=== PATIENT | female | born 1960 | race Caucasian/White ===

== ENCOUNTER 2022-11-01 17:17 | Emergency (ER) | payer OTHER, BC ==
--- OUTSIDE RECORDS SUMMARY | 2022-11-01 17:21 | XMS REPORT | Clinical Summary ---
:1960 Author Organization [facility] MD [facility] Address [address] [place] [address] Care Team Providers Name Role Phone Guero Shabazz MD Unavailable Altagracia Chavarria MD Unavailable [phone] Keerthi Mcdowell MD Primary Care Provider Allergies No known active allergies Medications Medication Sig Dispensed Refills Start End Date Status Date CALCIUM 0 Active CARBONATE/VITAMIN 5 D3 (CALCIUM 600 + D,3, ORAL) magnesium 200 mg 800 mg. 0 Act seven tab 5 metFORMIN Take by mouth 2 0 Acti ve (GLUCOPHAGE) 500 (two) times a day 6 mg tablet with meals. cholecalciferol, 0 Act seven vitamin D3, 50 5 mcg (2,000 unit) capsule fish oil-omega-3 Take 2 capsules 0 Active fatty acids (2 g) by mouth 300-1,000 mg daily. capsule MV-MIN/IRON/FOLIC Take by mouth 0 Active /CALCIUM/VITK daily. (WOMEN'S MULTIVITAMIN ORAL) albuterol Inhale 2 puffs by 0 Ac tive (VENTOLIN mouth as needed. HFA,PROAIR HFA) 90 mcg/puff inhaler losartan-hydrochl Take 1 tablet by 0 Active orothiazide mouth daily. (HYZAAR) 50-12.5 mg per tablet Saxenda 3 mg/0.5 0 Act seven mL (18 mg/3 mL) 2 pnij rosuvastatin rosuvastatin 5 mg 0 Active (CRESTOR) 5 mg tablet tablet LORazepam Take 0.5 mg by 0 06/04/19 Disco ntinued (ATIVAN) 0.5 mg mouth once. 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 History of radiation therapy to breast area 11/03/2016 Intraductal carcinoma in situ of left breast 7 Cancer Staging: Clinical stage from 07/14: Stage 0 (Tis (DCIS), N0, M0) - Signed by Hui Plaza MD on 07/14/2016 Pathologic stage from 08/18/2016: Stage U nknown (Tis (DCIS), NX, cM0) - Signed by Hui Plaza MD on 08/18/2016 Encounters Date Type Specialty Care Team Description 06/11/2022 Ancillary Procedure Radiology Jo-Ann Mendez, Person al history of MD malignant neopl asm of breast 06/11/2022 Ancillary Procedure Radiology Jo-Ann Mendez, Person al history of MD malignant neopl asm of breast 06/11/2022 Travel 06/04/2022 Office Visit Cancer Prevention Fredi Moore, Encounter for follow-up examination after completed treatment for malignant neoplasm (Primary Dx); PRESS LEADER Personal history of malignant neoplasm o f breast; Jo-Ann Mendez, Lobular carci noma in situ of unspecified breast 06/04/2022 Ancillary Procedure Radiology Fredi Moore, Personal history of PRESS LEADER malignant neopl asm of breast 06/04/2022 Travel after 11/01/2021 Immunizations Name Administration Dates Next Due Pfizer SARS-CoV-2 Vaccination (Purple 05/21/2021, , 08/08/2020 Cap) Influenza (IM) Preservative Free 03/17/2017 Pfizer SARS-CoV-2 Vaccination 12+ y.o. 10/04/2021 Surgical History Surgery Date Site/Laterality Comments SECTION, LOW 1993, 1996 TRANSVERSE THERMAL ABLATION 06/01/2011 - 05/31/2012 endometri um DILATION AND CURETTAGE OF 06/01/2013 - 05/31/2014 UTERUS TUBAL LIGATION 03/01/1997 - N/A 03/31/1997 COLONOSCOPY 06/01/2019 - 05/31/2020 MASTECTOMY, PARTIAL OTHER SURGICAL HISTORY breast re excision Medical History Medical History Date Comments Hypertension Cyst of breast Menopause 09/30/2011 Uterine leiomyoma 09/30/2011 Insulin resistance - type A Mnire's disease Gestational diabetes mellitus Neoplasm of breast primary tumor staging category 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 Neoplasm of breast primary tumor staging category Tis (LCIS) : Lobar carcinoma in situ Atypical lobular hyperplasia of breast Osteopenia Other specified noninfective gastroenteritis and colitis 2021 Family History Medical History Relation Name Comments Skin cancer Maternal Aunt Lung cancer Maternal Grandmother Francy smoker -Breast cancer Other 1 paternal 2nd cou sin Ovarian cancer Other 2 paternal great a unt Pancreatic cancer Other 3 maternal great grandmother Leukemia Paternal Grandfather Relation Name Status Comments Maternal Aunt Maternal Grandmother Francy Other 1 Other 2 Other 3 Paternal Grandfather Paternal Grandmother Kelin Malave Social History Tobacco Use Types Packs/Day Years Used Date Smoking Tobacco: Never Smokeless Tobacco: Never Tobacco Cessation: Counseling Given: Not Answered Alcohol Use Standard Drinks/Week Comments No 0 (1 standard drink = 0.6 oz pure alcoho l) Sex Assigned at Date Recorded Not on file Job Start Date Occupation Industry Not on file Not on file Not on file Obstetrics History Para Term AB IAB SAB Ectopic Multiple Living Live Births 2 2 Date Outcome GA Total Labor/2nd/3rd Weight Sex Delivery Anes PTL Sherry A 1 A5 Name Clin Labor Para Para Comments Age of menarche: 17, age of parity: 33 Use of oral contraceptives: 15 years, us e of hormone replacement therapy: 3 years Last Filed Vital Signs Vital Sign Reading Time Taken Comments Blood Pressure 110/68 06/04/2022 2:10 PM HOSPITAL MONITOR Pulse 77 06/04/2022 2:10 PM HOSPITAL MONITOR Temperature - - Respiratory Rate 18 06/04/2022 2:10 PM HOSPITAL MONITOR Oxygen Saturation - - Inhaled Oxygen Concentration - - Weight 61.2 kg (134 lb 15.8 oz) 06/04/2022 2:07 PM HOSPITAL MONITOR Height 153 cm (5' 0.24") 06/04/2022 2:07 PM HOSPITAL MONITOR Body Mass Index 26.16 06/04/2022 2:07 PM HOSPITAL MONITOR Plan of Treatment Date Type Specialty Care Team Description 01/14/2023 Office Visit Cancer Prevention Jo-Ann Mendez MD [address] [place], [place] [address] (Wo rk) 01/14/2023 Ancillary Procedure Radiology Travis Mendez MD [address] [place], [place] [address] (Wo rk) Health Maintenance Due Date Last Done Comments COVID-19 Vaccination (5 - Pfizer 11/29/2021 10/04/2021, , series) 08/29/2020, Additional history exists Procedures Procedure Name Priority Date/Time Associated Comments Diagnosis US BREAST COMPLETE Routine 06/11/2022 2:33 PM Personal history of Results for this RIGHT HOSPITAL MONITOR malignant neoplasm procedure are in of breast the results section. MAMMO DIGITAL Routine 06/11/2022 1:41 PM Personal history of R esults for this DIAGNOSTIC RIGHT W HOSPITAL MONITOR malignant neoplasm pro cedure are in ALEX of breast the results section. MAMMO DIGITAL Routine 06/04/2022 1:43 PM Personal history of R esults for this SCREENING BILATERAL HOSPITAL MONITOR malignant neoplasm pr ocedure are in W ALEX of breast the results section. after 11/01/2021 Results US Breast Complete - Right (06/11/2022 2:33 PM HOSPITAL MONITOR) Anatomical Region Laterality Modality Breast Right Ultrasound Specimen (Source) Anatomical Collection Method Collection Time Re ceived Time Location / / Volume Laterality 06/11/2022 2:34 PM HOSPITAL MONITOR Impressions 06/11/2022 2:34 PM HOSPITAL MONITOR There is no sonographic evidence of malignancy. Annual screening mammogram in 1 year is recommended. BI-RADS Category 2: Benign Finding(s) The findings and recommendations were di scussed with the patient at time of the examination. Narrative 06/11/2022 2:34 PM HOSPITAL MONITOR CLINICAL INDICATION: Patient is a 61 year old female and is s een for additional evaluation requested from prior study FILMS COMPARED [facility], and at [facility] on 08/26/2021 and 06/11/2022 were reviewed. Images were obtained in multiple scannin g planes. Real-time sonographic imaging of the rig ht breast (including all 4 quadrants and retroareolar region) was performed. There are post operative changes in the right breast. No suspicious solid mass or acoustic abnormality is identified. Procedure Note Lala Brunson MD - 06/11/2022 CLINICAL INDICATION: Patient is a 61 year old female and is s een for additional evaluation requested from prior study FILMS COMPARED Prior [facility] 06/[facility]2017, and at [facility] on 08/26/2021 and 06/11/2022 were reviewed. Images were obtained in multiple scannin g planes. Real-time sonographic imaging of the rig ht breast (including all 4 quadrants and retroareolar region) was performed. There are post operative changes in the right breast. No suspicious solid mass or acoustic abnormality is identified. IMPRESSION: There is no sonographic evidence of rudy gnancy. Annual screening mammogram in 1 year is recommended. BI-RADS Category 2: Benign Finding(s) The findings and recommendations were di scussed with the patient at time of the examination. Jo-Ann Mendez MD IMG US ORDERABLES (ABNORMAL) Mammography Digital Diagnostic Right with Alex (06/11/2022 1:41 PM HOSPITAL MONITOR) Anatomical Region Laterality Modality Breast Right Mammography Specimen (Source) Anatomical Collection Method Collection Time Re ceived Time Location / / Volume Laterality 06/11/2022 2:32 PM HOSPITAL MONITOR Impressions 06/11/2022 2:32 PM HOSPITAL MONITOR There are no mammographic findings of malignancy. Ultrasound has been ordered for further evaluation and scheduled to immediately follow. BI-RADS Category 0: Incomplete: Needs Additional Imaging Margarita luation Narrative 06/11/2022 2:32 PM HOSPITAL MONITOR CLINICAL INDICATION: Patient is a 61 year old female and is s een for additional evaluation requested from prior study MAMMO DIGITAL DIAGNOSTIC RIGHT W ALEX Digital Mammogram evaluated with Compute r Aided Detection (CAD). COMPARISON: [facility]2017 and 07/09/2018, at [facility] on 08/17/2020, and at [facility] on 08/23/2021 and 06/04/2022 were reviewed. FINDINGS: The breast is heterogeneously dense, whi ch may obscure small masses. The previously described asymmetry in th e superior right breast is not identified on the lateral medial project ion and no underlying suspicious mass or architectural distortion is identifie d on 3D tomosynthesis imaging. There are postoperative changes from prior reducti on mammoplasty. This finding likely represents postoperative change. Tomosynthesis performed in CC and MLO pr ojections. Procedure Note Lala Brunson MD - 06/11/2022 CLINICAL INDICATION: Patient is a 61 year old female and is s een for additional evaluation requested from prior study MAMMO DIGITAL DIAGNOSTIC RIGHT W ALEX Digital Mammogram evaluated with Compute r Aided Detection (CAD). COMPARISON: [facility]2017 and 07/09/2018, at [facility] on 08/17/2020, and at [facility] on 08/23/2021 and 06/04/2022 were reviewed. FINDINGS: The breast is heterogeneously dense, whi ch may obscure small masses. The previously described asymmetry in th e superior right breast is not identified on the lateral medial project ion and no underlying suspicious mass or architectural distortion is identifie d on 3D tomosynthesis imaging. There are postoperative changes from prior reducti on mammoplasty. This finding likely represents postoperative change. Tomosynthesis performed in CC and MLO pr ojections. IMPRESSION: There are no mammographic findings of ma lignancy. Ultrasound has been ordered for further evaluation and scheduled to immediately follow. BI-RADS Category 0: Incomplete: Needs Additional Imaging Margarita luation Jo-Ann Mendez MD IMG MAMMOGRAPHY ORDERABLES (ABNORMAL) Mammography Digital Screening Bilateral with Alex (06/04/2022 1:43 PM HOSPITAL MONITOR) Anatomical Region Laterality Modality Breast Bilateral Mammography Specimen (Source) Anatomical Collection Method Collection Time Re ceived Time Location / / Volume Laterality 06/04/2022 2:00 PM HOSPITAL MONITOR Impressions 06/04/2022 2:00 PM HOSPITAL MONITOR 1: Finding in the posterior upper inner region of the left breast is benign. 2: Asymmetry in the superior right aleksandra ast located 4.5 centimeters from the nipple requires additional imaging evalu ation. Additional views and possible ultrasound to follow are recommended. 3: Calcifications in both breasts are benign. BI-RADS Category 0: Incomplete: Needs Additional Imaging Margarita luation Narrative 06/04/2022 2:00 PM HOSPITAL MONITOR CLINICAL INDICATION: Patient is a 61 year old female and is s een for screening. MAMMO DIGITAL SCREENING BILATERAL W ALEX Digital Mammogram evaluated with Compute r Aided Detection (CAD). COMPARISON: The present examination has been compare d to prior imaging studies performed at an outside location on 06/12/2015, 06/25, 07/08/2016, 08/04/2016, 08/07/2016, 02/19/2017, 06/30/2017 and 0 07/09/2018, at [facility] on 08/17/2020, and a [facility] on 08/23/2021. FINDINGS: The breast is heterogeneously dense, whi ch may obscure small masses. 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 2: There is an asymmetry seen in the M LO view only in the superior right breast located 4.5 centimeters from the nipple. 3: There are benign appearing calcific ations in both breasts. Tomosynthesis performed in CC and MLO pr ojections. Procedure Note Luma Zambrano MD - 06/04/2022 CLINICAL INDICATION: Patient is a 61 year old female and is s een for screening. MAMMO DIGITAL SCREENING BILATERAL W ALEX Digital Mammogram evaluated with Compute r Aided Detection (CAD). COMPARISON: The present examination has been compare d to prior imaging studies performed at an outside location on 06/12/2015, 06/25, 07/08/2016, 08/04/2016, 08/07/2016, 02/19/2017, 06/30/2017 and 0 07/09/2018, at [facility] on 08/17/2020, and a [facility] on 08/23/2021. FINDINGS: The breast is heterogeneously dense, whi ch may obscure small masses. 1: This is from a segmental mastectomy i n 2016 for DCIS. 2: There is an asymmetry seen in the MLO view only in the superior right breast located 4.5 centimeters from the nipple. 3: There are benign appearing calcificat ions in both breasts. Tomosynthesis performed in CC and MLO pr ojections. IMPRESSION: 1: Finding in the posterior upper inner region of the left breast is benign. 2: Asymmetry in the superior right breas t located 4.5 centimeters from the nipple requires additional imaging evalu ation. Additional views and possible ultrasound to follow are recommended. 3: Calcifications in both breasts are be nign. BI-RADS Category 0: Incomplete: Needs Additional Imaging Margarita luation Fredi Moore APRN IMG MAMMOGRAPHY ORDERABLES after 11/01/2021 Insurance Payer Benefit Plan / Subscriber ID Effective Dates Phone Addre ss Type Group [employer] [place] POS [id number] 2019-Present [address] [address] [place] [id number] (Work) Suki Sidhu Personal/Famil Self 1960 [address] [phone] [place], [place] [address] (Work) Suki Sidhu Personal/Famil Self 1960 [address] [phone] [place], [place] [address] (Work) Care Teams Process Environmental Technician Relationship Specialty Start Date End Date Guero Shabazz MD PCP - External Primary Internal Medicine 07/14/16 Care Provider Altagracia Chavarria PCP - External Obstetrics/Gynecology 07/14/16 MD Ese Referring [id number] [facility] [address] [place] [address] Keerthi Mcdowell MD PCP - General Cancer Prevention 08/23/21 [facility] [place], [place] [id number] Dr. Parikh Physician Endocrinology 07/14/[address] [address]
--- OUTSIDE RECORDS SUMMARY | 2022-11-01 17:22 | XMS REPORT | Continuity of Care Document ---
:1960 Author Organization [facility] t Address [address] [facility] [address] [place] [address] Care Team Providers Name Role Phone [phone] Primary Care Physician Unavailable Pura Perez Attending Clinician Valentino Jarvis MD Attending Clinician [email or web address] Attending Clinician Unavailable Mame Justice MD Attending Clinician MAME JUSTICE Attending Clinician Unavailable Fredi Palmer APRN Attending Clinician FREDI PALMER Attending Clinician Unavailable Laurie Agee MD Attending Clinician [phone] Rodriguez Walker MD Attending Clinician Gabrielle Phelan Attending Clinician LAURIE AGEE Attending Clinician Unavailable Gillian Robledo Attending Clinic forest [phone] ROBERTO BA Attending Clinician Unavailable MAURA SHEA Attending Clinician Unavailable HELENA COMBS Attending Clinician Unavailable XOCHITL ARVIZU Attending Clinician Unavailable ZAHIRA CUNNINGHAM Attending Clinician Unavailable WALT GONZALEZ Attending Clinician Unavailable ELMA MONIQUE Attending Clinician Unavailable MD MAURA SHEA Attending Clinician Unavailable MD LAURIE AGEE Attending Clinician Unavailable CARROLLEPC_LeycoPolicarp Admitting Clinician Unavailable LAURIE AGEE Admitting Clinician Unavailable MD MAURA SHEA Admitting Clinician Unavailable MD LAURIE AGEE Admitting Clinician Unavailable Payers Payer Name Policy Type Policy Number Effective Date Expiration Date S ovidio BCBS OF P [id number] [facility] BLUE CROSS-CA: [id number] 2019 00:00:00 ANTHEM BLUE CROSS (PPO) Problems Condition Condition Condition Status Onset Resolution Last Treating Co mments Source Name Details Category Date Date Treatment Clinician Date COVID COVID-19 Disease Active [facility]o di 01-25 [facility] 00:00: Hospita 00 l 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 08-27 Medical cyst Cyst 00:00: 00 Neoplasm Neoplasm Disease Active Unive rs of breast of breast 6-08 ity of primary primary 00:00: [place] tumor tumor 00 staging staging [facility] category category n 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 Impaired Impaired Problem Active [facility] a fasting Fasting 5-26 Medical glycemia Glycemia 00:00: 00 Hyperlipid Hyperlipid Problem Active 2017-06 [facility] emia emia 0-12 Medical 00:00: 00 Osteopenia Osteopenia Problem Active [facility] 4-18 Medical 00:00: 00 Elevated Elevated Problem Active [facility] liver Liver 6-08 Medical enzymes Enzymes 00:00: level Level 00 History of History of Disease Active U nivers radiation radiation 6-05 ity [place] [facility] Malignant Malignant Problem Active [facility] via tumor of Tumor of 3-05 Medica l breast Breast 00:00: 00 Vitamin D Vitamin D Problem Active [facility] via deficiency Deficiency 3-05 Me dical 00:00: 00 Ruptured Ruptured Problem Active [facility] cyst of Cyst of 3-05 Medical ovary Ovary 00:00: 00 History of History of Problem Active [facility] endometria Endometria 3-05 Me dical l ablation l Ablation 00:00: 00 Menopause Menopause Problem Active [facility] via 3-05 Medical 00:00: 00 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 00:[place]: [place] 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 [facility] breast breast [facility] Menopause Menopause Problem Active [facility] via present Present 09-09 Medical 00:00: 00 Hypoglycem Hypoglycem Problem Active [facility] ia ia 02-09 Medical 00:00: 00 Metabolic Metabolic Problem Active [facility] via syndrome X Syndrome X 02-09 Me dical 00:00: 00 Benign Benign Problem Active [facility] essential Essential 02-09 Medi adilia hypertensi Hypertensi 00:00: on on 00 Hypertensi Hypertensi Problem Active [facility] ve ve 02-09 Medical disorder Disorder 00:00: 00 Menopausal Menopausal Problem Active [facility] symptom Symptom 02-09 Medical 00:00: 00 Abnormal Abnormal Problem Active [facility] weight Weight 02-09 Medical gain Gain 00:00: 00 History of History of Problem Active [facility] gestationa Gestationa - Me dical l diabetes l Diabetes 00:00: mellitus Mellitus 00 Family Family Problem Active [facility] history of History of 02-09 Me dical diabetes Diabetes 00:00: mellitus Mellitus 00 Allergies, Adverse Reactions, Alerts This patient has no known allergies or adverse reactions. Family History Family Member Diagnosis Comments Start Date Stop Date Source Maternal aunt [facility] MD [facility] Maternal Lung cancer [facility] MD Son [facility] [place] Other -[facility] MD [facility]ick [facility] [place] Other [facility] Nicanor [facility] Other Pancreatic cancer [facility] Nicanor [facility] Paternal Leukemia [facility] MD Son [facility] [place] Paternal [facility] MD Son [facility] [place] Social History Social Habit Start Date Stop Date Quantity Comments Source Gender identity [facility] Sexual [facility] History of Social 2022-08-05 2022-08-[address] function 00:00:00 00:00:00 Hospital Tobacco use and 2022-06-04 2022-06-04 Smokeless Universit y of exposure 00:00:00 00:00:00 tobacco non-user [facility] Alcohol intake 2022-01-09 2022-01-09 Current Catholic 00:00:00 00:00:00 non-drinker of Hospital alcohol (finding) Sex Ass[birth year] At [birth year] Catholic 00:00:00 00:00:00 Hospital Smoking Status Start Date Stop Date Source Never smoked tobacco [facility] Medications Ordered Filled Start Stop Current Ordering Indication Dosage Frequency Signature Comments Components Source Medication Medication Date Date Medication? Clinician (SIG) Name Name rosuvastati Yes rosuvastat Univers n (CRESTOR) -04 in 5 mg ity o f 5 mg tablet 19:09: [place] 08 [place] Lr [facility] LORazepam .5mg Take 0.5 Uni vers (ATIVAN) 1-04 01-04 mg by ity of 0.5 mg 14:22: 00:00 mouth [place] tablet 59 :00 once. MD Be tang [facility] fish Yes 2g Take 2 Univers oil-omega-3 1-04 capsules ity of fatty acids 14:14: (2 g[place] 300-1,000 05 mouth MD mg capsule daily. [facility] MV-MIN/IRON Yes Take by Uni vers /FOLIC/CALC 1-04 mouth ity of IUM/VITK 14:14: daily. [place] (WOMEN'S 05 MULTIVITAMI Be Tang ORAL) [facility] albuterol Yes 2{puff} Inhale 2 U nivers (VENTOLIN 1-04 puffs by ity of HFA,PROAIR 14:14: mouth as [place] as HFA) 90 05 needed. mcg/puff [facility] inhaler [facility] losartan-hy Yes 1{tbl} Take 1 Un allegra drochloroth 1-04 tablet by ity of iazide 14:14: mouth [place] (HYZAAR) 05 daily. 50-12.5 mg [facility] per tablet [facility] Saxenda 3 2021-06 Yes Univers mg/0.5 mL 1-02 ity of (18 mg/3 00:00: [place] mL) pnij 00 MD Lr n [facility] traZODone Yes 50mg QD Take 50 mg Me thodi (DESYREL) 8-[address] 50 MG 10:10: nightly. Hospita tablet 02 l liraglutide Yes 3mg QD Inject 3 Me thodi , weight 8-[address] loss, 3 10:10: the skin Hospit a mg/0.5 mL 02 daily. l (18 mg/3 mL) pen injector losartan-hy Yes 1{tbl} QD Take 1 Me thodi drochloroth 8-[address] iazide 10:10: mouth Hospita (HYZAAR) 02 daily. l 50-12.5 mg per tablet rosuvastati Yes 5mg QD Take 5 mg M ethodi n (CRESTOR) 8-[address] 5 mg tablet 10:10: daily. Hosp alia 02 l magnesium Yes 500mg QD Chew 500 Met hodi oxide 200 8-[address] mg 10:19: Hospita magnesium 50 l tablet,chew able metFORMIN Yes 1000mg QD Take 1,000 Methodi XR 8-[address] (GLUCOPHAGE 10:19: mouth Hospi ta -XR) 500 mg 50 nightly. l 24 hr tablet multivit-mi Yes Take by Met hodi n/ferrous 8-[address] fumarate 10:19: Hospita (MULTI 50 l VITAMIN ORAL) omega Yes Fish Oil Methodi 3-dha-epa-f 8[address] [facility] oil 10:19: Hospita 100-160-1,0 50 l 00 mg capsule benzocaine- 2019-06- No Q.25D Apply 1 M ethodi menthoL 1-18 01-[address] (DERMOPLAST 00:00: 00:00 n Hospi ta ) 20-0.5 % 00 :00 topically l aerosol 4 (four) times a day as needed for mild pain. benzocaine- 2019-06- No Q.25D Apply 1 M ethodi menthoL 0-[address] (DERMOPLAST 00:00: 00:00 n Hospi ta ) 20-0.5 % 00 :00 topically l aerosol 4 (four) times a day as needed for mild pain. amb custom 2019-06- No Lidocaine M ethodi compound 0-14 08 10% in a st 00:00: 00:00 hypoallerg Hospit a 00 :00 enic l nonburning base Applied to the entry of the vagina 5 to 10 minutes prior to vaginal penetratio n Fish Oil Fish Oil 2015-06 No Fish Oil P [facility]ia 120 mg-180 120 mg-180 1-23 120 mg-180 Medical mg capsule mg capsule 00:00: mg capsule 00 Fish Oil Fish Oil 2015-06 No Fish Oil P [facility] 120 mg-180 120 mg-180 1-23 120 mg-180 Medical mg capsule mg capsule 00:00: mg capsule 00 Fish Oil Fish Oil 2015-06 No Fish Oil P [facility]ia 120 mg-180 120 mg-180 1-23 120 mg-180 Medical mg capsule mg capsule 00:00: mg capsule 00 Fish Oil Fish Oil 2015-06 No Fish Oil P [facility]ia 120 mg-180 120 mg-180 1-23 120 mg-180 Medical mg capsule mg capsule 00:00: mg capsule 00 metFORMIN Yes Take by [facility] rs (GLUCOPHAGE 07-02 mouth 2 ity o f ) 500 mg 00:00: (two) [place] tablet 00 times a MD day with [facility] meals. n [facility] CALCIUM Yes Univers CARBONATE/V 01-30 ity of ITAMIN D3 00:00: [place] (CALCIUM 00 600 + D,3, [facility] ORAL) n Cancer Center magnesium Yes 800mg 800 mg. Univ ers 200 mg tab 01-30 ity of 00:00: [place] 00 MD rL [facility] Center cholecalcif Yes [facility] s leigh, 01-30 ity of vitamin D3, 00:00: [place] 50 mcg 00 (2,000 [facility] unit) n capsule Cancer Center calcium Yes Methodi carbonate-v 01-30 st itamin D3 00:00: Hospita 1,000 00 l mg(2,500 mg)-800 unit tablet lisinopril- 2021- No Metho di hydrochloro 701-07 st thiazide 00:00: 00:00 Hospita (PRINZIDE,Z 00 :00 l ESTORETIC) 10-12.5 mg per tablet Calcium 500 Calcium 500 No Calcium [facility] 12 k daily 12 k daily 500 12 k Medical daily famotidine famotidine No famotidine [facility] 20 mg 20 mg 20 mg Medical tablet tablet tablet losartan 50 losartan 50 No losartan [facility] mg-hydrochl mg-hydrochl 50 M edical orothiazide orothiazide mg-hydroch 12.5 mg 12.5 mg lorothiazi tablet TAKE tablet TAKE de 12.5 mg 1 TABLETBY 1 TABLETBY tablet ORAL ROUTE ORAL ROUTE TAKE 1 DAILY DAILY TABLETBY ORAL ROUTE DAILY magnesium magnesium No magnesium [facility] 800 daily 800 daily 800 daily Medical metformin metformin No metformin [facility] ER 500 mg ER 500 mg ER 500 mg Medical tablet,exte tablet,exte tablet,ext nded nded ended release 24 release 24 release 24 hr TAKE 2 hr TAKE 2 hr TAKE 2 TABLETS BY TABLETS BY TABLETS BY MOUTH DAILY MOUTH DAILY MOUTH DAILY pantoprazol pantoprazol No pantoprazo [facility] e 40 mg e 40 mg le 40 mg Medic al tablet,alvaro tablet,alvaro tablet,del yed release yed release ayed TAKE 1 TAKE 1 release TABLET BY TABLET BY TAKE 1 MOUTH EVERY MOUTH EVERY TABLET BY DAY DAY MOUTH EVERY DAY Saxenda 3 Saxenda 3 No 3mg Q1D Saxenda 3 [facility] mg/0.5 mL mg/0.5 mL mg/0.5 mL Medical (18 mg/3 (18 mg/3 (18 mg/3 mL) mL) mL) subcutaneou subcutaneou subcutaneo s pen s pen us pen injector injector injector Inject 3 mg Inject 3 mg Inject 3 every day every day mg every by by day by subcutaneou subcutaneou subcutaneo s route for s route for us route 90 days. 90 days. for 90 days. trazodone trazodone No trazodone [facility] 50 mg 50 mg 50 mg Medical tablet TAKE tablet TAKE tablet 1 1 TAKE 1 TABLET(50MG TABLET(50MG TABLET(50M )BY ORAL )BY ORAL G)BY ORAL ROUTE AT ROUTE AT ROUTE AT BEDTIME BEDTIME BEDTIME Ventolin Ventolin No Ventolin [place]el[place] via HFA 90 HFA 90 HFA 90 Medical mcg/actuati mcg/actuati mcg/actuat on aerosol on aerosol ion inhaler inhaler aerosol INHALE 2 INHALE 2 inhaler PUFFS FOUR PUFFS FOUR INHALE 2 TIMES A DAY TIMES A DAY PUFFS FOUR NEEDED NEEDED TIMES A AND FOR AND FOR DAY EXERCISE EXERCISE NEEDED AND FOR EXERCISE Vitamin 3 k Vitamin 3 k No Vitamin 3 [facility] daily daily k daily Medical Calcium 500 Calcium 500 No Calcium [facility] 12 k daily 12 k daily 500 12 k Medical daily famotidine famotidine No famotidine [facility] 20 mg 20 mg 20 mg Medical tablet tablet tablet lorazepam lorazepam No lorazepam [facility] 0.5 mg 0.5 mg 0.5 mg Medical tablet TAKE tablet TAKE tablet 1 TABLET 1 TABLET TAKE 1 (0.5 MG) BY (0.5 MG) BY TABLET MOUTH ONCE MOUTH ONCE (0.5 MG) FOR 1 DOSE. FOR 1 DOSE. BY MOUTH ONCE FOR 1 DOSE. losartan 50 losartan 50 No losartan [facility] mg-hydrochl mg-hydrochl 50 M edical orothiazide orothiazide mg-hydroch 12.5 mg 12.5 mg lorothiazi tablet TAKE tablet TAKE de 12.5 mg 1 TABLETBY 1 TABLETBY tablet ORAL ROUTE ORAL ROUTE TAKE 1 DAILY DAILY TABLETBY ORAL ROUTE DAILY magnesium magnesium No magnesium [facility] 800 daily 800 daily 800 daily Medical metformin metformin No metformin [facility] ER 500 mg ER 500 mg ER 500 mg Medical tablet,exte tablet,exte tablet,ext nded nded ended release 24 release 24 release 24 hr TAKE 2 hr TAKE 2 hr TAKE 2 TABLETS BY TABLETS BY TABLETS BY MOUTH DAILY MOUTH DAILY MOUTH DAILY pantoprazol pantoprazol No pantoprazo [facility] e 40 mg e 40 mg le 40 mg Medic al tablet,alvaro tablet,alvaro tablet,del yed release yed release ayed TAKE 1 TAKE 1 release TABLET BY TABLET BY TAKE 1 MOUTH EVERY MOUTH EVERY TABLET BY DAY DAY MOUTH EVERY DAY rosuvastati rosuvastati No rosuvastat [facility] n 5 mg n 5 mg in 5 mg Medical tablet TAKE tablet TAKE tablet 1 TABLET BY 1 TABLET BY TAKE 1 MOUTH MOUTH TABLET BY EVERYDAY AT EVERYDAY AT MOUTH BEDTIME BEDTIME EVERYDAY AT BEDTIME Saxenda 3 Saxenda 3 No 3mg Q1D Saxenda 3 [facility] mg/0.5 mL mg/0.5 mL mg/0.5 mL Medical (18 mg/3 (18 mg/3 (18 mg/3 mL) mL) mL) subcutaneou subcutaneou subcutaneo s pen s pen us pen injector injector injector Inject 3 mg Inject 3 mg Inject 3 every day every day mg every by by day by subcutaneou subcutaneou subcutaneo s route for s route for us route 90 days. 90 days. for 90 days. trazodone trazodone No trazodone [facility] 50 mg 50 mg 50 mg Medical tablet TAKE tablet TAKE tablet 1 1 TAKE 1 TABLET(50MG TABLET(50MG TABLET(50M )BY ORAL )BY ORAL G)BY ORAL ROUTE AT ROUTE AT ROUTE AT BEDTIME BEDTIME BEDTIME Ventolin Ventolin No Ventolin Ad[place] via HFA 90 HFA 90 HFA 90 Medical mcg/actuati mcg/actuati mcg/actuat on aerosol on aerosol ion inhaler inhaler aerosol INHALE 2 INHALE 2 inhaler PUFFS FOUR PUFFS FOUR INHALE 2 TIMES A DAY TIMES A DAY PUFFS FOUR NEEDED NEEDED TIMES A AND FOR AND FOR DAY EXERCISE EXERCISE NEEDED AND FOR EXERCISE Vitamin 3 k Vitamin 3 k No Vitamin 3 [facility] daily daily k daily Medical albuterol albuterol No albuterol [facility] sulfate HFA sulfate HFA sulfate Medical 90 90 HFA 90 mcg/actuati mcg/actuati mcg/actuat on aerosol on aerosol ion inhaler inhaler aerosol INHALE 1 INHALE 1 inhaler PUFF(90MCG) PUFF(90MCG) INHALE 1 BY BY PUFF(90MCG INHALATION INHALATION )BY ROUTE THREE ROUTE THREE INHALATION TIMES A DAY TIMES A DAY ROUTE NEEDED NEEDED THREE TIMES A DAY NEEDED azithromyci azithromyci No azithromyc [facility] n 250 mg n 250 mg in 250 mg Me dical tablet tablet tablet PLEASE SEE PLEASE SEE PLEASE SEE ATTACHED ATTACHED ATTACHED FOR FOR FOR DETAILED DETAILED DETAILED DIRECTIONS DIRECTIONS DIRECTIONS BD BD No BD [facility] Ultra-Fine Ultra-Fine Ultra-Fine Medical Christine Pen Christine Pen Christine Pen Needle 32 Needle 32 Needle 32 gauge x gauge x gauge x " " " Calcium 500 Calcium 500 No Calcium [facility] 12 k daily 12 k daily 500 12 k Medical daily famotidine famotidine No famotidine [facility] 20 mg 20 mg 20 mg Medical tablet tablet tablet Flowflex Flowflex No Flowflex [facility] via COVID-19 COVID-19 COVID-19 Med ical Antigen Antigen Antigen Home Test Home Test Home Test kit kit kit lansoprazol lansoprazol No lansoprazo [facility] e 30 mg e 30 mg le 30 mg Medic al capsule,del capsule,del capsule,de ayed ayed layed release release release TAKE 1 TAKE 1 TAKE 1 CAPSULE BY CAPSULE BY CAPSULE BY MOUTH EVERY MOUTH EVERY MOUTH DAY BEFORE DAY BEFORE EVERY DAY A MEAL FOR A MEAL FOR BEFORE A 30 DAYS 30 DAYS MEAL FOR 30 DAYS lorazepam lorazepam No lorazepam [facility] 0.5 mg 0.5 mg 0.5 mg Medical tablet TAKE tablet TAKE tablet 1 TABLET 1 TABLET TAKE 1 (0.5 MG) BY (0.5 MG) BY TABLET MOUTH ONCE MOUTH ONCE (0.5 MG) FOR 1 DOSE. FOR 1 DOSE. BY MOUTH ONCE FOR 1 DOSE. losartan 50 losartan 50 No losartan [facility] mg-hydrochl mg-hydrochl 50 M edical orothiazide orothiazide mg-hydroch 12.5 mg 12.5 mg lorothiazi tablet TAKE tablet TAKE de 12.5 mg 1 TABLET BY 1 TABLET BY tablet MOUTH EVERY MOUTH EVERY TAKE 1 DAY DAY TABLET BY MOUTH EVERY DAY magnesium magnesium No magnesium [facility] 800 daily 800 daily 800 daily Medical metformin metformin No metformin [facility] ER 500 mg ER 500 mg ER 500 mg Medical tablet,exte tablet,exte tablet,ext nded nded ended release 24 release 24 release 24 hr TAKE 2 hr TAKE 2 hr TAKE 2 TABLETS BY TABLETS BY TABLETS BY MOUTH DAILY MOUTH DAILY MOUTH DAILY pantoprazol pantoprazol No pantoprazo [facility] e 40 mg e 40 mg le 40 mg Medic al tablet,alavro tablet,alvaro tablet,del yed release yed release ayed TAKE 1 TAKE 1 release TABLET BY TABLET BY TAKE 1 MOUTH EVERY MOUTH EVERY TABLET BY DAY DAY MOUTH EVERY DAY rosuvastati rosuvastati No rosuvastat [facility] n 5 mg n 5 mg in 5 mg Medical tablet TAKE tablet TAKE tablet 1 TABLET BY 1 TABLET BY TAKE 1 MOUTH MOUTH TABLET BY EVERYDAY AT EVERYDAY AT MOUTH BEDTIME BEDTIME EVERYDAY AT BEDTIME Saxenda 3 Saxenda 3 No 3mg Q1D Saxenda 3 [facility] mg/0.5 mL mg/0.5 mL mg/0.5 mL Medical (18 mg/3 (18 mg/3 (18 mg/3 mL) mL) mL) subcutaneou subcutaneou subcutaneo s pen s pen us pen injector injector injector Inject 3 mg Inject 3 mg Inject 3 every day every day mg every by by day by subcutaneou subcutaneou subcutaneo s route for s route for us route 90 days. 90 days. for 90 days. trazodone trazodone No trazodone [facility] 50 mg 50 mg 50 mg Medical tablet TAKE tablet TAKE tablet 1 1 TAKE 1 TABLET(50MG TABLET(50MG TABLET(50M )BY ORAL )BY ORAL G)BY ORAL ROUTE AT ROUTE AT ROUTE AT BEDTIME BEDTIME BEDTIME Vitamin 3 k Vitamin 3 k No Vitamin 3 [facility] daily daily k daily Medical acetaminoph acetaminoph No acetaminop [facility] en 300 en 300 hen 300 Medical mg-codeine mg-codeine mg-codeine 30 mg 30 mg 30 mg tablet tablet tablet PLEASE SEE PLEASE SEE PLEASE SEE ATTACHED ATTACHED ATTACHED FOR FOR FOR DETAILED DETAILED DETAILED DIRECTIONS DIRECTIONS DIRECTIONS alprazolam alprazolam No alprazolam [facility] 0.5 mg 0.5 mg 0.5 mg Medical tablet TAKE tablet TAKE tablet 1 TABLET 1 TABLET TAKE 1 (0.5 MG (0.5 MG TABLET TOTAL) BY TOTAL) BY (0.5 MG MOUTH MOUTH TOTAL) BY NIGHTLY NIGHTLY MOUTH NEEDED NEEDED NIGHTLY (INTERCOURS (INTERCOURS NEEDED E) FOR UP E) FOR UP (INTERCOUR TO 30 DAYS. TO 30 DAYS. SE) FOR UP TO 30 DAYS. amoxicillin amoxicillin No amoxicilli [facility] 875 mg 875 mg n 875 mg Medical tablet TAKE tablet TAKE tablet 1 TABLET BY 1 TABLET BY TAKE 1 MOUTH TWICE MOUTH TWICE TABLET BY A DAY FOR A DAY FOR MOUTH 10 DAYS 10 DAYS TWICE A DAY FOR 10 DAYS benzonatate benzonatate No benzonatat [facility] 200 mg 200 mg e 200 mg Medical capsule capsule capsule TAKE 1 TAKE 1 TAKE 1 CAPSULE BY CAPSULE BY CAPSULE BY MOUTH THREE MOUTH THREE MOUTH TIMES A DAY TIMES A DAY THREE FOR 10 DAYS FOR 10 DAYS TIMES A DAY FOR 10 DAYS Calcium 500 Calcium 500 No Calcium [facility] 12 k daily 12 k daily 500 12 k Medical daily Contrave 8 Contrave 8 No 2 BID Contrave 8 [facility] mg-90 mg mg-90 mg mg-90 mg Med ical tablet,exte tablet,exte tablet,ext nded nded ended release release release Take 2 Take 2 Take 2 tablets tablets tablets twice a day twice a day twice a by oral by oral day by route. route. oral route. Dermoplast Dermoplast No Dermoplast [facility] (with (with (with Medical menthol) 20 menthol) 20 menthol) %-0.5 % %-0.5 % 20 %-0.5 % topical topical topical aerosol aerosol aerosol APPLY 1 APPLY 1 APPLY 1 APPLICATION APPLICATION APPLICATIO TOPICALLY 4 TOPICALLY 4 N (FOUR) (FOUR) TOPICALLY TIMES A DAY TIMES A DAY 4 (FOUR) NEEDED NEEDED TIMES A FOR MILD FOR MILD DAY PAIN. PAIN. NEEDED FOR MILD PAIN. diazepam 2 diazepam 2 No diazepam 2 [facility] mg tablet mg tablet mg tablet Medical TAKE 1 TAKE 1 TAKE 1 TABLET (2 TABLET (2 TABLET (2 MG TOTAL) MG TOTAL) MG TOTAL) BY MOUTH BY MOUTH BY MOUTH ONCE ONCE ONCE NIGHTLY NIGHTLY NIGHTLY NEEDED FOR NEEDED FOR NEEDED FOR ANXIETY OR ANXIETY OR ANXIETY OR SEDATION SEDATION SEDATION FOR UP TO 5 FOR UP TO 5 FOR UP TO DAYS DAYS 5 DAYS fluocinonid fluocinonid No fluocinoni [facility] e 0.05 % e 0.05 % de 0.05 % Me dical topical topical topical solution solution solution APPLY TO APPLY TO APPLY TO BODY TWICE BODY TWICE BODY TWICE A DAY A DAY A DAY NEEDED NEEDED NEEDED ibuprofen ibuprofen No ibuprofen [facility] 600 mg 600 mg 600 mg Medical tablet tablet tablet PLEASE SEE PLEASE SEE PLEASE SEE ATTACHED ATTACHED ATTACHED FOR FOR FOR DETAILED DETAILED DETAILED DIRECTIONS DIRECTIONS DIRECTIONS Imvexxy Imvexxy No Imvexxy [facility] Starter Starter Starter Medica l Pack 10 mcg Pack 10 mcg Pack 10 vaginal vaginal mcg insert, insert, vaginal dose pack dose pack insert, ONE VAGINAL ONE VAGINAL dose pack INSERT ONCE INSERT ONCE ONE PER DAY X 2 PER DAY X 2 VAGINAL WEEKS , WEEKS , INSERT THEN 1 THEN 1 ONCE PER VAGINAL VAGINAL DAY X 2 INSERT INSERT WEEKS , TWICE TWICE THEN 1 WEEKLY WEEKLY VAGINAL THEREAFTER THEREAFTER INSERT TWICE WEEKLY THEREAFTER lidocaine lidocaine No lidocaine [facility] 10% in 10% in 10% in Medical versabase versabase versabase cream APPLY cream APPLY cream OT THE OT THE APPLY OT ENTRY OF ENTRY OF THE ENTRY THE VAGINA THE VAGINA OF THE 5 TO 10 5 TO 10 VAGINA 5 MINUTES MINUTES TO 10 PRIOR TO PRIOR TO MINUTES VAGINAL VAGINAL PRIOR TO PENETRATION PENETRATION VAGINAL PENETRATIO N lidocaine 5 lidocaine 5 No lidocaine [facility] % topical % topical 5 % Medic al ointment ointment topical APPLY APPLY ointment TOPICALLY TOPICALLY APPLY NEEDED NEEDED TOPICALLY FOR MILD FOR MILD NEEDED PAIN. PAIN. FOR MILD PAIN. losartan 25 losartan 25 No losartan [facility] mg tablet mg tablet 25 mg Medi adilia tablet losartan 50 losartan 50 No losartan [facility] mg-hydrochl mg-hydrochl 50 M edical orothiazide orothiazide mg-hydroch 12.5 mg 12.5 mg lorothiazi tablet TAKE tablet TAKE de 12.5 mg 1 TABLETBY 1 TABLETBY tablet ORAL ROUTE ORAL ROUTE TAKE 1 DAILY DAILY TABLETBY ORAL ROUTE DAILY magnesium magnesium No magnesium [facility] 800 daily 800 daily 800 daily Medical metformin metformin No metformin [facility] ER 500 mg ER 500 mg ER 500 mg Medical tablet,exte tablet,exte tablet,ext nded nded ended release 24 release 24 release 24 hr TAKE 2 hr TAKE 2 hr TAKE 2 TABLETS BY TABLETS BY TABLETS BY MOUTH DAILY MOUTH DAILY MOUTH DAILY methylpredn methylpredn No methylpred [facility] isolone 4 isolone 4 nisolone 4 Medical mg tablets mg tablets mg tablets in a dose in a dose in a dose pack TAKE 6 pack TAKE 6 pack TAKE TABLETS ON TABLETS ON 6 TABLETS DAY 1 DAY 1 ON DAY 1 DIRECTED ON DIRECTED ON PACKAGE AND PACKAGE AND DIRECTED DECREASE BY DECREASE BY ON PACKAGE 1 TAB EACH 1 TAB EACH AND DAY FOR A DAY FOR A DECREASE TOTAL OF 6 TOTAL OF 6 BY 1 TAB DAYS DAYS EACH DAY FOR A TOTAL OF 6 DAYS Ozempic Ozempic No .5mg Q1W Ozempic [facility] 0.25 mg or 0.25 mg or 0.25 mg or Medical 0.5 mg (2 0.5 mg (2 0.5 mg (2 mg/1.5 mL) mg/1.5 mL) mg/1.5 mL) subcutaneou subcutaneou subcutaneo s pen s pen us pen injector injector injector Inject 0.5 Inject 0.5 Inject 0.5 mg every mg every mg every week by week by week by subcutaneou subcutaneou subcutaneo s route for s route for us route 90 days. 90 days. for 90 days. pantoprazol pantoprazol No pantoprazo [facility] e 40 mg e 40 mg le 40 mg Medic al tablet,alvaro tablet,alvaro tablet,del yed release yed release ayed TAKE 1 TAKE 1 release TABLET BY TABLET BY TAKE 1 MOUTH EVERY MOUTH EVERY TABLET BY DAY DAY MOUTH EVERY DAY paroxetine paroxetine No paroxetine [facility] mesylate mesylate mesylate Med ical (menopausal (menopausal (menopausa symptoms symptoms l symptoms suppressant suppressant suppressan ) 7.5 mg ) 7.5 mg t) 7.5 mg capsule capsule capsule TAKE 1 TAKE 1 TAKE 1 CAPSULE BY CAPSULE BY CAPSULE BY MOUTH MOUTH MOUTH EVERYDAY AT EVERYDAY AT EVERYDAY BEDTIME BEDTIME AT BEDTIME Personal Personal No Personal Adelita via Best Full Best Full Best Full Medical Range Range Range device USE device USE device USE 3 TIMES A 3 TIMES A 3 TIMES A DAY AND DAY AND DAY AND RECORD THE RECORD THE RECORD THE BEST OF 3 BEST OF 3 BEST OF 3 EFFORT ( EFFORT ( EFFORT ( TOTAL OF 9 TOTAL OF 9 TOTAL OF 9 EFFORTS EFFORTS EFFORTS Plenvu 140 Plenvu 140 No Plenvu 140 [facility] gram-9 gram-9 gram-9 Medical gram-5.2 gram-5.2 gram-5.2 gram powder gram powder gram packs TAKE packs TAKE powder DIRECTED DIRECTED packs TAKE DIRECTED Prescriptio Prescriptio No Prescripti [facility] n - Prior n - Prior on - Prior Medical Authorizati Authorizati Authorizat on Request on Request ion Request tramadol 50 tramadol 50 No tramadol [facility] mg tablet mg tablet 50 mg Medi adilia PLEASE SEE PLEASE SEE tablet ATTACHED ATTACHED PLEASE SEE FOR FOR ATTACHED DETAILED DETAILED FOR DIRECTIONS DIRECTIONS DETAILED DIRECTIONS trazodone trazodone No trazodone [facility] 50 mg 50 mg 50 mg Medical tablet TAKE tablet TAKE tablet 1 1 TAKE 1 TABLET(50MG TABLET(50MG TABLET(50M )BY ORAL )BY ORAL G)BY ORAL ROUTE AT ROUTE AT ROUTE AT BEDTIME BEDTIME BEDTIME Ventolin Ventolin No Ventolin Adelita via HFA 90 HFA 90 HFA 90 Medical mcg/actuati mcg/actuati mcg/actuat on aerosol on aerosol ion inhaler inhaler aerosol INHALE 2 INHALE 2 inhaler PUFFS FOUR PUFFS FOUR INHALE 2 TIMES A DAY TIMES A DAY PUFFS FOUR NEEDED NEEDED TIMES A AND FOR AND FOR DAY EXERCISE EXERCISE NEEDED AND FOR EXERCISE Vitamin 3 k Vitamin 3 k No Vitamin 3 [facility] daily daily k daily Medical Immunizations Ordered Filled Immunization Date Status Comments Sourc e Immunization Name Name Pfizer SARS-CoV-2 2021-10-04 Completed Univers ity of Vaccination 12+ 00:00:00 Bhargav Verma [facility] Pfizer SARS-CoV-2 2021-05-21 Completed Univer sity of Vaccination (Purple 00:00:00 [place] [facility] PFIZER COVID-19 2021-05-20 Completed Catholic MRNA VACCINATION 00:00:00 [facility] Pfizer SARS-CoV-2 2020-08-29 Completed Univer sity of Vaccination (Purple 00:00:00 [place] [facility] PFIZER COVID-19 2020-08-29 Completed Catholic MRNA VACCINATION 00:00:00 [facility] Pfizer SARS-CoV-2 2020-08-08 Completed Univer sity of Vaccination (Purple 00:00:00 [place] [facility] PFIZER COVID-19 2020-08-08 Completed Catholic MRNA VACCINATION 00:00:00 [facility] Influenza (IM) 2017-03-17 Completed University of Preservative Free 00:00:00 [facility] Vital Signs Vital Name Observation Time Observation Value Comments Source BP Diastolic 2022-06-04 00:00:00 72 mm[Hg] Zeke Whaley edical BP Systolic 2022-06-04 00:00:00 116 mm[Hg] [facility] Body Weight 2022-06-04 00:00:00 135 [lb_av] [facility] BP Diastolic 2021-11-25 00:00:00 62 mm[Hg] [facility] M [facility] BP Systolic 2021-11-25 00:00:00 112 mm[Hg] [facility] ed[facility] Body Weight 2021-11-25 00:00:00 145.6 [lb_av] [facility] BP Diastolic 2021-07-29 00:00:00 86 mm[Hg] Zeke M edical BP Systolic 2021-07-29 00:00:00 124 mm[Hg] [facility] Body Weight 2021-07-29 00:00:00 150.8 [lb_av] [facility] BP Diastolic 2021-04-29 00:00:00 78 mm[Hg] [facility] BP Systolic 2021-04-29 00:00:00 122 mm[Hg] [facility] ed[facility] Body Weight 2021-04-29 00:00:00 157 [lb_av] [facility] Whaley edical Systolic blood 2022-06-04 20:10:39 110 mm[Hg] Univer sity of pressure [facility] Diastolic blood 2022-06-04 20:10:39 68 mm[Hg] Unive rsity of pressure [place] MD [facility] Heart rate 2022-06-04 20:10:39 77 /min [facility] Respiratory rate 2022-06-04 20:10:39 18 /min [facility] Body height 2022-06-04 20:07:00 153 cm [facility] Body weight 2022-06-04 20:07:00 61.23 kg [facility]i [facility] BMI 2022-06-04 20:07:00 26.16 kg/m2 [facility] MD Gonzales on [facility] Center Systolic blood 2022-01-07 15:00:00 115 mm[Hg] [facility] pressure Diastolic blood 2022-01-07 15:00:00 75 mm[Hg] [facility] pressure Heart rate 2022-01-07 15:00:00 67 /min [facility] Respiratory rate 2022-01-07 15:00:00 14 /min [facility] Oxygen saturation in 2022-01-07 15:00:00 100 /min [facility] Arterial blood by Pulse oximetry Body temperature 2022-01-07 14:30:00 35.72 Nessa [facility] Body height 2022-01-07 12:56:00 152.4 cm [facility] Body weight 2022-01-07 12:56:00 65.772 kg [facility] BMI 2022-01-07 12:56:00 28.32 kg/m2 [facility] Procedures Procedure Date / Time Performed Performing Clinician [facility] e BONE DENSITY 2022-08-18 13:51:00 Pura Blackburn [facility] US BREAST COMPLETE 2022-06-11 20:33:00 Mame Justice [facility] RIGHT MD Verma [facility] Center MAMMO DIGITAL 2022-06-11 19:41:00 Mame Justice [facility] DIAGNOSTIC RIGHT W MD [facility] 2022-06-04 19:43:00 Fredi Palmer [place] [facility] SCREENING BILATERAL W MD Be tang Cancer [facility] Center DEXA 2022-06-04 00:00:00 [facility] SURGICAL PATHOLOGY 2022-01-07 14:15:00 Laurie Agee [facility] REQUEST Abenas EGD WITH BIOPSY 2022-01-07 14:05:00 CyndieLaurie [facility] spital Abann marie CT, neck, w/wo 2021-04-29 00:00:00 [facility] contrast Plan of Care Planned Activity Planned Date Details Comments Source Future Scheduled Test 2022-10-24 [facility] 06:05:21 (5 - Pfizer series) MD Nicanor gupta Cancer [code = COVID-19 Center Vaccination (5 - Pfizer series)] Future Scheduled Test 2022-09-25 Hepatitis C Method [facility] 13:22:24 screening (procedure) [code = 275480035] Future Scheduled Test 2022-09-[address] [facility] 13:22:24 malignant neoplasm of cervix (procedure) [code = 678255692] Future Scheduled Test 2022-09-25 COLONOSCOPY Method [facility] 13:22:24 SCREENING [code = COLONOSCOPY SCREENING] Future Scheduled Test 2022-09-25 SHINGLES VACCINES (1 [facility] 13:22:24 of 2) [code = SHINGLES VACCINES (1 of 2)] Future Scheduled Test 2022-09-25 COVID-19 VACCINE (5 [facility] 13:22:24 - Booster for Pfizer series) [code = COVID-19 VACCINE (5 - Booster for Pfizer series)] Future Scheduled Test 2022-09-25 INFLUENZA VACCINE [facility] 13:22:24 [code = INFLUENZA VACCINE] Future Scheduled Test 2022-09-[address] [facility] 13:22:24 SCREENING [code = BREAST CANCER SCREENING] Diagnostic Test 2022-06-04 CMP, serum or plasma [facility] Pending 00:00:00 [code = CMP, serum or plasma] Diagnostic Test 2022-06-04 HbA1c (hemoglobin [facility] Pending 00:00:00 A1c), blood [code = HbA1c (hemoglobin A1c), blood] Diagnostic Test 2022-06-04 lipid panel, serum [facility] Pending 00:00:00 [code = lipid panel, serum] Diagnostic Test 2022-06-04 vitamin D, [facility] Pending 00:00:00 25-hydroxy, total, serum [code = vitamin D, 25-hydroxy, total, serum] Future Appointment 2022-12-05 PuraJustin Nevarez Medical 08:00:00 [address] [facility]; , [place] [address] Instructions [facility] Encounters Start End Encounter Admission Attending Care Care Encounter Source Date/Time Date/Time Type Type Clinicians Facility Department ID 2021-03-[address] [facility] [id number] [facility] 08:37:53 [id number] [facility] 2022-08-18 2022-08-18 [facility] Pura Blackburn 1.2.840.1 [id number] Methodi 08:30:25 23:59:00 Encounter Valentino Jarvis 99273.1.[address] 3.430.2.7 Hospit a .3.997236 .8 2022-08-18 2022-08-18 Outpatient FAVIO [facility] [id number] [place] 00:00:00 00:00:00 [facility] [address] 2022-07-25 2022-07-25 Outpatient GC_EPC_Leyc PRIV PRIV [id number] [facility] 00:00:00 00:00:00 oPolicarp [id number] Medi adilia 2022-06-11 2022-06-11 Ancillary Andrea, 1.2.840.1 [id number] Univers 14:45:00 16:30:00 Procedure Mame 56196.1.1 it y of 3.412.2.7 [place] .3.635436 [facility] 2022-06-11 2022-06-11 Ancillary Andrea, 1.2.840.1 [id number] Univers 13:15:00 14:15:00 Procedure Mame 65076.1.1 it y of 3.412.2.7 [place] .3.504409 MD Youssef [facility] 2022-06-11 2022-06-11 Outpatient GEE JUSTICE MDA MDA [id number] 13:41:59 13:41:59 MAME tang 2022-06-11 2022-06-11 Outpatient GEE JUSTICE SHREE MDA [id number] 12:59:37 12:59:37 MAME tang 2022-06-11 2022-06-11 Travel 1.2.840.1 1.2.944.805 [id number] Univers 00:00:00 00:00:00 93176.1.1 350.1.13.41 ity of 3.412.2.7 [place].3.698 [place] .[place].3758[place] 084.8 .8 [facility] 2022-06-04 2022-06-04 Office Fredi Palmer 1.2.840.1 [id number] [facility] [place] [facility] 13:40:00 14:46:07 Visit Mame Justice 94990.1.1 ity of 3.412.2.7 [place] .3.059065 .8 [facility] 2022-06-04 2022-06-04 Outpatient FREDI [facility] MDA [id number] 13:39:53 14:46:07 Christian tang 2022-06-04 2022-06-04 Ancillary Fredi Palmer 1.2.840.1 [id number] [facility] [place] [facility] 13:05:00 13:40:00 Procedure 50811.1.1 it y of 3.412.2.7 [place] .3.539006 .8 [facility] 2022-06-04 2022-06-04 Outpatient FREDI WELLINGTON MDA MDA [id number] 12:58:37 12:58:37 Christian tang 2022-06-04 2022-06-04 Pura PRIV [facility] 04 [facility] 00:00:00 00:00:00 [facility] bianca Blackburn, KATIE_EPC_[place] PA: [address] [facility] [place] [address] , Ph. 2022-06-04 2022-06-04 Travel 1.2.840.1 1.2.787.838 [id number] Univers 00:00:00 00:00:00 65696.1.1 350.1.13.41 ity of 3.412.2.7 2.[place].3.698 [place] .3.752369 084.8 MD Armenta8 [facility] 2022-05-13 2022-05-13 Outpatient GC_EPC_Leyc PRIV PRIV [id number] [facility] 00:00:00 00:00:00 oPolicarp [id number] [facility] 2022-05-13 2022-05-13 Outpatient GC_EPC_Leyc PRIV PRIV [id number] [facility] 00:00:00 00:00:00 oPolicarp [id number] [facility] 2022-05-13 2022-05-13 Outpatient GC_EPC_Leyc PRIV PRIV [id number] [facility] 00:00:00 00:00:00 oPolicarp [id number] [facility] 2022-02-03 2022-02-03 Outpatient GC_EPC_Leyc PRIV PRIV [id number] [facility] 00:00:00 00:00:00 oPolicarp [id number] [facility] 2022-01-07 2022-01-07 [facility], 1.2.840.1 [id number] [facility] 07:27:00 10:10:00 Encounter Laurie [address]0940.1.[address] [place] 3.430.2.7 Hospit a .3.497494 l .8 2022-01-07 2022-01-07 Surgery [facility] 1.2.840.1 [id number] [facility] 09:00:00 09:45:[address] [place] 3.430.2.7 Hospit a .3.592414 l .8 2022-01-07 2022-01-07 Anesthesia Rodriguez Walker K 1.2.840.1 [id number] [facility] 09:05:00 09:31:00 Event Gabrielle Wyman 97735.1.1 872 s t 3.430.2.7 Hospit a .3.452415 l .8 2022-01-07 2022-01-07 Outpatient [facility] [id number] [place] 00:00:00 00:00:[address] LAURIE [address] 2022-01-07 2022-01-07 Travel 1.2.840.1 1.2.239.688 [id number] [facility] 00:00:00 00:00:[address] 3.430.2.7 0.2.7.3.698 Ho spita .3.832097 084.8 l .8 2022-01-06 2022-01-06 Outpatient GC_EPC_Leyc PRIV PRIV [id number] [facility] 00:00:00 00:00:00 oPolicarp [id number] [facility] 2022-01-03 2022-01-03 Travel 1.2.840.1 1.2.017.600 [id number] [facility] 00:00:00 00:00:[address] 3.430.2.7 0.2.7.3.698 Ho spita .3.835430 084.8 l .8 2021-12-20 2021-12-20 Outpatient [facility], [id number] 07:52:00 23:59:00 LAURIEFOREST [facility] 2021-12-17 2021-12-17 Travel 1.2.840.1 1.2.147.603 [id number] Method[facility] 00:00:00 00:00:[address] 3.430.2.7 0.2.7.3.698 Ho spita .3.860638 084.8 l .8 2021-12-09 2021-12-09 Outpatient GC_EPC_Leyc PRIV PRIV [id number] [facility] 12:57:00 12:57:00 oPolicarp [id number] [facility] 2021-11-26 2021-11-26 Outpatient GC_EPC_Leyc PRIV PRIV [id number] [facility] 11:50:00 11:50:00 oPolicarp [id number] [facility] 2021-11-25 2021-11-25 Outpatient GC_EPC_Leyc PRIV PRIV [id number] [facility] 09:52:00 09:52:00 oPolicarp [id number] [facility] 2021-11-25 2021-11-25 [facility] 00:00:00 00:00:00 [facility] GC_EPC_[place] [facility] Edward euceda MD: [address] [facility], [place] [address] , Ph. 2021-11-25 2021-11-25 Outpatient Leyco-Polic PRIV PRIV [id number] 00:00:00 00:00:00 radha [id number] Gillian [id number] [facility] [id number] [facility] 2021-11-18 2021-11-18 Outpatient GC_EPC_Leyc PRIV PRIV [id number] [facility] 11:17:00 11:17:00 oPolicarp [id number] [facility] 2021-09-13 2021-09-13 Outpatient GC_EPC_Leyc PRIV PRIV [id number] [facility] 03:29:00 03:29:00 oPolicarp [id number] [facility] 2021-08-26 2021-08-26 Outpatient EL MDA MDA [id number] 08:56:03 08:56:03 Christian tang 2021-08-23 2021-08-23 Outpatient EL BA, MDA MDA [id number] 15:54:07 16:59:27 ROBERTO Gonzales o clyde 2021-08-23 2021-08-23 Outpatient EL BA, MDA MDA [id number] MD 15:28:14 15:28:14 ROBERTO Gonzales o clyde 2021-08-16 2021-08-16 Outpatient GC_EPC_Leyc PRIV PRIV [id number] [facility] 04:18:00 04:18:00 oPolicarp [id number] [facility] 2021-07-29 2021-07-29 Outpatient GC_EPC_Leyc PRIV PRIV [id number] [facility] 01:21:00 01:21:00 oPolicarp [id number] [facility] 2021-07-29 2021-07-29 Gillian PRIV [facility] 28 [facility] 00:00:00 00:00:00 [facility] GC_EPC_[place]: [address] [facility] [place] [address] , Ph. 2021-07-29 2021-07-29 Outpatient Leyco-Polic PRIV PRIV [id number] 00:00:00 00:00:00 radha [id number] Gillian [id number] Kati [id number] Ferriols 2021-07-23 2021-07-23 Outpatient GC_EPC_Leyc PRIV PRIV [id number] [facility] 10:33:00 10:33:00 oPolicarp [id number] [facility] 2021-05-21 2021-05-21 Outpatient LEYCO-POLIC [facility] [id number] [place] 00:00:00 00:00:00 Alverto THOMAS Method i [facility] 2021-05-20 2021-05-20 Outpatient [facility] [id number] [place] 00:00:00 00:00:[address] 2021-04-29 2021-04-29 Outpatient GC_EPC_Leyc PRIV PRIV [id number] [facility] 10:14:00 10:14:00 oPolicarp [id number] [facility] 2021-04-29 2021-04-29 [facility]IV [facility] [id number] [facility] 00:00:00 00[facility]00[facility]00 [facility]_[place] ok: [id number] [facility] [place] [address] , Ph. 2021-04-29 2021-04-29 Outpatient Leyco-Polic PRIV PRIV [id number] 00:00:00 00:00:00 radha [id number] Gillian [id number] Kati [id number] [facility] 2021-01-25 2021-01-25 [facility] [id number] [place] 00:00:00 00:00:00 CHINELO [address] 2020-10-01 2020-10-01 Outpatient GC_EPC_Leyc PRIV PRIV [id number] [facility] 01:02:00 01:02:00 oPolicarp [id number] Medi adilia 2020-08-29 2020-08-29 Outpatient GARRET [facility] [id number] [place] 00:00:00 00:00:00 CHRISTOPHER [address] 2020-08-28 2020-08-28 Outpatient GEE RAKANJINNY MDA MDA [id number] 13:34:36 13:34:36 , XOCHITL [facility] n 2020-08-21 2020-08-21 Outpatient ZAHIRA CUNNINGHAM [facility] [id number] [place] 00:00:00 00:00:[address] 2020-08-21 2020-08-21 Outpatient MONSE, [facility] [id number] [place] 00:00:00 00:00:00 CHINELO [address] 2020-08-17 2020-08-17 Outpatient GEE GONZALEZ, MDA MDA [id number] 09:17:32 09:17:32 WALT tagn 2020-08-16 2020-08-16 Outpatient MONSE, [facility] [id number] [place] 00:00:00 00:00:00 CHINELO [address] 2020-08-08 2020-08-08 Outpatient [facility] [id number] [place] 00:00:00 00:00:[address] 2020-07-23 2020-07-23 Outpatient KAYDEN, [facility] [id number] [place] 00:00:00 00:00:00 ELMA [address] 2020-07-12 2020-07-12 Outpatient MONIQUE, [facility] [id number] [place] 00:00:00 00:00:00 ELMA [address] 2020-05-23 2020-05-23 Outpatient BERHANE CUNNINGHAMUJA [facility] [id number] [place] 00:00:00 00:00:[address] 2020-05-23 2020-05-23 Outpatient [facility] [id number] [place] 00:00:00 00:00:[address] 2020-05-09 2020-05-09 Outpatient MONSE, [facility] [id number] [place] 00:00:00 00:00:00 CHINELO [address] 2020-04-18 2020-04-18 Outpatient ZAHIRA CUNNINGHAM [facility] [id number] [place] 00:00:00 00:00:[address] 2020-03-23 2020-03-23 Outpatient CYNDIE [facility] [id number] [place] 00:00:00 00:00:00 LAURIE [address] 2020-03-14 2020-03-14 Outpatient ZAHIRA CUNNINGHAM [facility] [id number] [place] 00:00:00 00:00:[address] 2020-03-14 2020-03-14 Outpatient [facility] [id number] [place] 00:00:00 00:00:[address] Results Test Description Test Time Test Comments Results Result Comments Source Mammography Digital Diagnostic Right with Alex 2022-06-11 20 :32:15 Test Item Value Reference Range Interpretation Comme [facility] Radiology Study observation (narrative) (test code = 98491-5) IMP (test code = IMP) There are no mammographic findings of malignancy. Ultrasound has been orderedfor further evaluation and scheduled to immediately follow. BI-RADS Category 0:Incomplete: Needs Additional Imaging Evaluation PXN (test code = PXN) Lala Brunson MD - 06/11/2022 CLINICAL INDICATION:Patient is a 61 year old female and is seen for additional evaluation requestedfrom prior study MAMMO DIGITAL DIAGNOSTIC RIGHT W TOMODigital Mammogram evaluated with Computer Aided Detection (CAD). COMPARISON:Prior imaging studies performed at an outside location on 06/30/2017 and07/09/2018, at [facility] on 08/17/2020, and at [facility] on 08/23/2021 and 06/04/2022 were reviewed. FINDINGS:The breast is heterogeneously dense, which may obscure small masses. The previously described asymmetry in the superior right breast is notidentified on the lateral medial projection and no underlying suspicious massor architectural distortion is identified on 3D tomosynthesis imaging. There arepostoperative changes from prior reduction mammoplasty. This finding likelyrepresents postoperative change. Tomosynthesis performed in CC and MLO projections. IMPRESSION:There are no mammographic findings of malignancy. Ultrasound has been orderedfor further evaluation and scheduled to immediately follow. BI-RADS Category 0:Incomplete: Needs Additional Imaging Evaluation Lab Interpretation (test code = Abnormal 79989-3) [facility] Bilateral with [id number] 20:00:33 Test Item Value Reference Range Interpretation Comments Radiology Study observation (narrative) (test code = 18477-4) IMP (test code = IMP) 1: Finding in the posterior upper inner region of the left breast is benign. 2: Asymmetry in the superior right breast located 4.5 centimeters from thenipple requires additional imaging evaluation. Additional views and possibleultrasound to follow are recommended. 3: Calcifications in both breasts are benign. BI-RADS Category 0:Incomplete: Needs Additional Imaging Evaluation PXN (test code = PXN) Luma Zambrano MD - 06/04/2022 CLINICAL INDICATION:Patient is a 61 year old female and is seen for screening. MAMMO DIGITAL SCREENING BILATERAL W TOMODigital Mammogram evaluated with Computer Aided Detection (CAD). COMPARISON:The present examination has been compared to prior imaging studies performed atan outside location on 06/12/2015, 06/25/2016, 07/08/2016, 08/04/2016,08/07/2016, 02/19/2017, 06/30/2017 and 07/09/2018, at [facility] on 08/17/2020, and at [facility] on 08/23/2021. FINDINGS:The breast is heterogeneously dense, which may obscure small masses. 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 2: There is an asymmetry seen in the MLO view only in the superior right breastlocated 4.5 centimeters from the nipple. 3: There are benign appearing calcifications in both breasts. Tomosynthesis performed in CC and MLO projections. IMPRESSION:1: Finding in the posterior upper inner region of the left breast is benign. 2: Asymmetry in the superior right breast located 4.5 centimeters from thenipple requires additional imaging evaluation. Additional views and possibleultrasound to follow are recommended. 3: Calcifications in both breasts are benign. BI-RADS Category 0:Incomplete: Needs Additional Imaging Evaluation Lab Interpretation Abnormal (test code = 63104-4) [facility] panel - Serum or Plasma 2022-05-28 00:00:00 Test Item Value Reference Range Interpretation Comments Cholesterol 133 mg/dL <200 [Mass/volume] in Serum or Plasma (test code = 2093-3) Cholesterol in HDL 55 mg/dL See_Comment [Automat ed [Mass/volume] in message] Th e system Serum or Plasma (test which generated code = 2085-9) this result transmitted reference range : > or = 50. The reference range was not used to interpret this result as normal/abnormal . Triglyceride 105 mg/dL <150 [Mass/volume] in Serum or Plasma (test code = 2571-8) Cholesterol in LDL 59 mg/dL [Mass/volume] in (calc) Serum or Plasma by calculation (test code = 61129-9) Cholesterol.total/Cho 2.4 (calc) <5.0 lesterol in HDL [Mass Ratio] in Serum or Plasma (test code = 9830-1) Cholesterol non HDL 78 mg/dL <130 [Mass/volume] in (calc) Serum or Plasma (test code = 75295-9) [facility] MedicalComprehensive metabolic 2000 panel - Serum or [id number] 00:00:00 Test Item Value Reference Range Interpretation Comments Glucose [Mass/volume] 74 mg/dL 65-99 in Serum or Plasma (test code = 2345-7) Urea nitrogen 18 mg/dL 7-25 [Mass/volume] in Serum or Plasma (test code = 3094-0) Creatinine 0.81 mg/dL 0.50-1.03 [Mass/volume] in Serum or Plasma (test code = 2160-0) Glomerular filtration 84 mL/min/1.73m2 See_Comment [ Automated rate/1.73 sq message] The M.predicted [Volume system w hich Rate/Area] in Serum, generat ed this Plasma or Blood by result Creatinine-based transmitted formula (CKD-EPI 2020) refer ence range: (test code = 29556-1) > or = 60. The reference range was not used to interpret this result as normal/abnormal . Urea not applicable 6-22 nitrogen/Creatinine [Mass Ratio] in Serum or Plasma (test code = 3097-3) Sodium [Moles/volume] 145 mmol/L 135-146 in Serum or Plasma (test code = 2951-2) Potassium 3.6 mmol/L 3.5-5.3 [Moles/volume] in Serum or Plasma (test code = 2823-3) Chloride 105 mmol/L 98-110 [Moles/volume] in Serum or Plasma (test code = 2074-0) Carbon dioxide, total 30 mmol/L 20-32 [Moles/volume] in Serum or Plasma (test code = 2027-) Calcium [Mass/volume] 9.6 mg/dL 8.6-10.4 in Serum or Plasma (test code = 61179-2) Protein [Mass/volume] 6.8 g/dL 6.1-8.1 in Serum or Plasma (test code = 2885-2) Albumin [Mass/volume] 4.0 g/dL 3.6-5.1 in Serum or Plasma (test code = 1751-7) Globulin [Mass/volume] 2.8 g/dL (calc) 1.9-3.7 in Serum by calculation (test code = 91204-7) Albumin/Globulin [Mass 1.4 (calc) 1.0-2.5 Ratio] in Serum or Plasma (test code = 1759-0) Bilirubin.total 0.5 mg/dL 0.2-1.2 [Mass/volume] in Serum or Plasma (test code = 1974-) Alkaline phosphatase 60 U/L 37-153 [Enzymatic activity/volume] in Serum or Plasma (test code = 6768-6) Aspartate 20 U/L 10-35 aminotransferase [Enzymatic activity/volume] in Serum or Plasma (test code = 1920-8) Alanine 30 U/L 6-29 H aminotransferase [Enzymatic activity/volume] in Serum or Plasma (test code = 1742-6) [facility] D3+25-Hydroxyvitamin D2 [Mass/volume] in Serum or [id number] 00:00:00 Test Item Value Reference Range Interpretation Comments 25-hydroxyvitamin D3 [Mass/volume] 49 NG/mL 30-100 in Serum or Plasma (test code = 1989-3) [facility]/Hemoglobin.total in [id number] 00:00:00 Test Item Value Reference Range Interpretation Comments Hemoglobin 5.2 % of total HGB <5.7 A1c/Hemoglobin.total in Blood (test code = 4548-4) [facility] [id number] 15:23:35 Test Item Value Reference Range Interpretation Comments Case number (test code = [id number]) Surgical pathology See link below for report (test code = PDF Lab Report [id number]) Result status (test code This is Final Report = [id number]) for [id number] [facility] 1995 panel - Serum or [id number] 00:00:00 Test Item Value Reference Range Interpretation Comments Cholesterol 136 mg/dL <200 [Mass/volume] in Serum or Plasma (test code = 2093-3) Cholesterol in HDL 54 mg/dL See_Comment [Automat ed [Mass/volume] in message] Th e system Serum or Plasma (test which generated code = 2085-9) this result transmitted reference range : > or = 50. The reference range was not used to interpret this result as normal/abnormal . Triglyceride 151 mg/dL <150 H [Mass/volume] in Serum or Plasma (test code = 2571-8) Cholesterol in LDL 59 mg/dL [Mass/volume] in (calc) Serum or Plasma by calculation (test code = 83984-0) Cholesterol.total/Cho 2.5 (calc) <5.0 lesterol in HDL [Mass Ratio] in Serum or Plasma (test code = 9830-1) Cholesterol non HDL 82 mg/dL <130 [Mass/volume] in (calc) Serum or Plasma (test code = 25745-2) [facility] - Serum or [id number] 00:00:00 Test Item Value Reference Range Interpretation Comments Glucose [Mass/volume] 90 mg/dL 65-99 in Serum or Plasma (test code = 2345-7) Urea nitrogen 11 mg/dL 7-25 [Mass/volume] in Serum or Plasma (test code = 3094-0) Creatinine 0.84 mg/dL 0.50-1.05 [Mass/volume] in Serum or Plasma (test code = 2160-0) Glomerular filtration 76 mL/min/1.73m2 See_Comment [ Automated rate/1.73 sq message] The M.predicted among system [facility] non-blacks [Volume generated this Rate/Area] in Serum, result Plasma or Blood by transmitt ed Creatinine-based reference r nicolette: formula (CKD-EPI) > or = 60. The (test code = 85403-9) refere nce range was not used to interpret this result as normal/abnormal . Glomerular filtration 88 mL/min/1.73m2 See_Comment [ Automated rate/1.73 sq message] The M.predicted among system [facility] blacks [Volume generated thi s Rate/Area] in Serum, result Plasma or Blood by transmitt ed Creatinine-based reference r nicolette: formula (CKD-EPI) > or = 60. The (test code = 09871-4) refere nce range was not used to interpret this result as normal/abnormal . Urea not applicable 6-22 nitrogen/Creatinine [Mass Ratio] in Serum or Plasma (test code = 3097-3) Sodium [Moles/volume] 145 mmol/L 135-146 in Serum or Plasma (test code = 2951-2) Potassium 3.7 mmol/L 3.5-5.3 [Moles/volume] in Serum or Plasma (test code = 2823-3) Chloride 106 mmol/L 98-110 [Moles/volume] in Serum or Plasma (test code = 5-0) Carbon dioxide, total 31 mmol/L 20-32 [Moles/volume] in Serum or Plasma (test code = 2027-9) Calcium [Mass/volume] 10.1 mg/dL 8.6-10.4 in Serum or Plasma (test code = 98737-4) Protein [Mass/volume] 6.6 g/dL 6.1-8.1 in Serum or Plasma (test code = 2885-2) Albumin [Mass/volume] 4.0 g/dL 3.6-5.1 in Serum or Plasma (test code = 1751-7) Globulin [Mass/volume] 2.6 g/dL (calc) 1.9-3.7 in Serum by calculation (test code = 13488-1) Albumin/Globulin [Mass 1.5 (calc) 1.0-2.5 Ratio] in Serum or Plasma (test code = 1759-0) Bilirubin.total 0.3 mg/dL 0.2-1.2 [Mass/volume] in Serum or Plasma (test code = 1975-2) Alkaline phosphatase 65 U/L 37-153 [Enzymatic activity/volume] in Serum or Plasma (test code = 6768-6) Aspartate 24 U/L 10-35 aminotransferase [Enzymatic activity/volume] in Serum or Plasma (test code = 1920-8) Alanine 27 U/L 6-29 aminotransferase [Enzymatic activity/volume] in Serum or Plasma (test code = 1742-6) [facility]/Hemoglobin.total in [id number] 00:00:00 Test Item Value Reference Range Interpretation Comments Hemoglobin 5.1 % of total HGB <5.7 A1c/Hemoglobin.total in Blood (test code = 4548-4) [facility] - Serum or [id number] 00:00:00 Test Item Value Reference Range Interpretation Comments Cholesterol 217 mg/dL <200 H [Mass/volume] in Serum or Plasma (test code = 2093-3) Cholesterol in HDL 53 mg/dL See_Comment [Automat ed [Mass/volume] in message] Th e system Serum or Plasma (test which generated code = 2085-9) this result transmitted reference range : > or = 50. The reference range was not used to interpret this result as normal/abnormal . Triglyceride 151 mg/dL <150 H [Mass/volume] in Serum or Plasma (test code = 2571-8) Cholesterol in LDL 136 mg/dL H [Mass/volume] in (calc) Serum or Plasma by calculation (test code = 64727-9) Cholesterol.total/Cho 4.1 (calc) <5.0 lesterol in HDL [Mass Ratio] in Serum or Plasma (test code = 9830-1) Cholesterol non HDL 164 mg/dL <130 H [Mass/volume] in (calc) Serum or Plasma (test code = 15508-1) [facility] - Serum or [id number] 00:00:00 Test Item Value Reference Range Interpretation Comments Glucose [Mass/volume] 79 mg/dL 65-99 in Serum or Plasma (test code = 2345-7) Urea nitrogen 15 mg/dL 7-25 [Mass/volume] in Serum or Plasma (test code = 3094-0) Creatinine 0.90 mg/dL 0.50-1.05 [Mass/volume] in Serum or Plasma (test code = 2160-0) Glomerular filtration 70 mL/min/1.73m2 See_Comment [ Automated rate/1.73 sq message] The M.predicted among system [facility] non-blacks [Volume generated this Rate/Area] in Serum, result Plasma or Blood by transmitt ed Creatinine-based reference r nicolette: formula (CKD-EPI) > or = 60. The (test code = 35578-7) refere nce range was not used to interpret this result as normal/abnormal . Glomerular filtration 82 mL/min/1.73m2 See_Comment [ Automated rate/1.73 sq message] The M.predicted among system [facility] blacks [Volume generated thi s Rate/Area] in Serum, result Plasma or Blood by transmitt ed Creatinine-based reference r nicolette: formula (CKD-EPI) > or = 60. The (test code = 98943-7) refere nce range was not used to interpret this result as normal/abnormal . Urea not applicable 6-22 nitrogen/Creatinine [Mass Ratio] in Serum or Plasma (test code = 3097-3) Sodium [Moles/volume] 143 mmol/L 135-146 in Serum or Plasma (test code = 2951-2) Potassium 3.5 mmol/L 3.5-5.3 [Moles/volume] in Serum or Plasma (test code = 2823-3) Chloride 103 mmol/L 98-110 [Moles/volume] in Serum or Plasma (test code = 5-0) Carbon dioxide, total 29 mmol/L 20-32 [Moles/volume] in Serum or Plasma (test code = 2027-9) Calcium [Mass/volume] 9.8 mg/dL 8.6-10.4 in Serum or Plasma (test code = 20830-0) Protein [Mass/volume] 7.4 g/dL 6.1-8.1 in Serum or Plasma (test code = 2885-2) Albumin [Mass/volume] 4.4 g/dL 3.6-5.1 in Serum or Plasma (test code = 1751-7) Globulin [Mass/volume] 3.0 g/dL (calc) 1.9-3.7 in Serum by calculation (test code = 07114-3) Albumin/Globulin [Mass 1.5 (calc) 1.0-2.5 Ratio] in Serum or Plasma (test code = 1759-0) Bilirubin.total 0.4 mg/dL 0.2-1.2 [Mass/volume] in Serum or Plasma (test code = 1975-2) Alkaline phosphatase 67 U/L 37-153 [Enzymatic activity/volume] in Serum or Plasma (test code = 6768-6) Aspartate 17 U/L 10-35 aminotransferase [Enzymatic activity/volume] in Serum or Plasma (test code = 1920-8) Alanine 25 U/L 6-29 aminotransferase [Enzymatic activity/volume] in Serum or Plasma (test code = 1742-6) [facility] Auto Differential panel - [id number] 00:00:00 Test Item Value Reference Range Interpretation Comments Leukocytes [#/volume] in 5.1 thousand/uL 3.8-10.8 Blood by Automated count (test code = 6690-2) Erythrocytes [#/volume] in 4.64 million/uL 3.80-5.10 Blood by Automated count (test code = 789-8) Hemoglobin [Mass/volume] in 13.8 g/dL 11.7-15.5 Blood (test code = 718-7) Hematocrit [Volume Fraction] 41.6 % 35.0-45.0 of Blood by Automated count (test code = 4544-3) Erythrocyte mean corpuscular 89.7 fL 80.0-100.0 volume [Entitic volume] by Automated count (test code = 787-2) Erythrocyte mean corpuscular 29.7 pg 27.0-33.0 hemoglobin [Entitic mass] by Automated count (test code = 785-6) Erythrocyte mean corpuscular 33.2 g/dL 32.0-36.0 hemoglobin concentration [Mass/volume] by Automated count (test code = 786-4) Erythrocyte distribution 13.6 % 11.0-15.0 width [Ratio] by Automated count (test code = 788-0) Platelets [#/volume] in Blood 302 thousand/uL 140-400 by Automated count (test code = 777-3) Platelet mean volume [Entitic 10.6 fL 7.5-12.5 volume] in Blood by Denys (test code = 776-5) Neutrophils [#/volume] in 2759 cells/uL 2156-0050 Blood by Automated count (test code = 751-8) Lymphocytes [#/volume] in 1800 cells/uL 850-3900 Blood by Automated count (test code = 731-0) Monocytes [#/volume] in Blood 459 cells/uL 200-950 by Automated count (test code = 742-7) Eosinophils [#/volume] in 31 cells/uL 15-500 Blood by Automated count (test code = 711-2) Basophils [#/volume] in Blood 51 cells/uL 0-200 by Automated count (test code = 704-7) Neutrophils/100 leukocytes in 54.1 % Blood by Automated count (test code = 770-8) Lymphocytes/100 leukocytes in 35.3 % Blood by Automated count (test code = 736-9) Monocytes/100 leukocytes in 9.0 % Blood by Automated count (test code = 5905-5) Eosinophils/100 leukocytes in 0.6 % Blood by Automated count (test code = 713-8) Basophils/100 leukocytes in 1.0 % Blood by Automated count (test code = 706-2) [facility]yrotropin [Units/volume] in Serum or [id number] 00:00:00 Test Item Value Reference Range Interpretation Comments Thyrotropin [Units/volume] in 0.84 mIU/L 0.40-4.50 Serum or Plasma (test code = 3016-3) [facility] MedicalHemoglobin A1c/Hemoglobin.total in [id number] 00:00:00 Test Item Value Reference Range Interpretation Comments Hemoglobin 5.1 % of total HGB <5.7 A1c/Hemoglobin.total in Blood (test code = 4548-4) [facility] UusnrnfJHFX-DqV-1 (COVID-19) RNA [Presence] in Respiratory specimen by MARLON with probe [id number] 05:41:25 Test Item Value Reference Range Interpretation Comments SARS-CoV-2 (COVID-19) RNA Not detected Not-Detected [Presence] in Respiratory specimen by MARLON with probe detection (test code = 11859-2) [facility] TlqmzxmaOHQU-AfI-1 (COVID-19) RNA [Presence] in Respiratory specimen by MARLON with probe [id number] 21:35:59 Test Item Value Reference Range Interpretation Comments SARS-CoV-2 (COVID-19) RNA Not detected Not-Detected [Presence] in Respiratory specimen by MARLON with probe detection (test code = 81203-8) [facility]
--- NOTE | 2022-11-01 19:03 | RAD REPORT ---
EXAM DESCRIPTION: RAD - Wrist Left 3 View - 11/01/2022 6:58 pm CLINICAL HISTORY: fall, wrist pain COMPARISON: No comparisons FINDINGS/IMPRESSION: Comminuted distal radial impaction fracture with intra-articular extension. Mil d foreshortening and dorsal displacement. Ulnar styloid fracture.
--- NOTE | 2022-11-01 19:04 | RAD REPORT ---
EXAM DESCRIPTION: RAD - Elbow Left 3 View - 11/01/2022 6:57 pm CLINICAL HISTORY: fall COMPARISON: No comparisons FINDINGS/IMPRESSION: Comminuted distal radial impaction fracture and ulnar styloid fracture. No left elbow fracture.
--- NOTE | 2022-11-01 19:06 | RAD REPORT ---
EXAM DESCRIPTION: RAD - Forearm Left - 11/01/2022 6:57 pm CLINICAL HISTORY: fall COMPARISON: No comparisons FINDINGS/IMPRESSION: Distal radial impaction fracture or an ulnar styloid fracture. No other fractur es appreciated.
--- NOTE | 2022-11-01 20:25 | EDPHYS ---
Physician Documentation [facility] Name: Suki Sidhu Age: 61 yrs Sex: Female : 1960 Arrival Date: 11/01/2022 Time: 17:17 Bed 10 Private MD: ED Physician Nghia Tucker HPI: 11/01 17:29 This 61 yrs old Female presents to ER via EMS with complaints of Fall Injury, Arm Pain, jmm Leg Pain. 17:29 Details of fall: The patient fell from an upright position, while walking. Is a jmm 61-year-old female with history of hypertension the presents emerged part with complaints of left upper extremity pain following a fall which occurred just prior to arrival. Patient states she slipped. Denies hitting her head.. Historical: - Allergies: 17:37 No Known Allergies; ll1 - PMHx: 17:37 Hypertensive disorder; insulin resistant; ll1 - PSHx: 17:37 breast CA SX; thermal ablation; section; ll1 - Immunization history:: Client reports receiving the 2nd dose of the Covid vaccine. - Social history:: Smoking status: Patient denies any tobacco usage or history of. ROS: 17:29 Constitutional: Negative for fever, chills, and weight loss, Cardiovascular: Negative jmm for chest pain, palpitations, and edema, Respiratory: Negative for shortness of breath, cough, wheezing, and pleuritic chest pain. 17:29 MS/extremity: Positive for injury or acute deformity, pain. 17:29 All other systems are negative. Exam: 17:29 Constitutional: This is a well developed, well nourished patient who is awake, alert, jmm and in no acute distress. Head/Face: atraumatic. Eyes: EOMI, no conjunctival erythema appreciated ENT: Moist Mucus Membranes Neck: Trachea midline, Supple Chest/axilla: Normal chest wall appearance and motion. Cardiovascular: Regular rate and rhythm. No edema appreciated Respiratory: Normal respirations, no respiratory distress appreciated Abdomen/GI: Non distended Back: Normal ROM Skin: General appearance color normal 17:29 Musculoskeletal/extremity: Pain noted on palpation of of the left elbow, full range of motion appreciated. Compartments are soft. Pain elicited on palpation of the distal radius, full radial pulse, full fish cleaner strength, neurovascular intact. 17:29 Skin: Appearance: Color: normal in color. 17:29 Neuro: Orientation: is normal, Mentation: is normal, Memory: is normal. 17:29 Psych: Behavior/mood is pleasant, cooperative. Vital Signs: 17:36 BP 131 / 104; Pulse 78; Resp 16; Temp 99; Pulse Ox 100% ; Weight 63.5 kg; Height 5 ft. ll1 0 in. ; Pain 8/10; 17:36 Body Mass Index 27.34 (63.50 kg, 152.4 cm) ll1 17:36 Pain Scale: Adult ll1 MDM: 17:29 Patient medically screened. [facility] 20:30 Differential diagnosis: Fracture, sprain. Data reviewed: vital signs, nurses notes, [facility] radiologic studies, plain films. I considered the following discharge prescriptions or medication management in the emergency department Medications were administered in the Emergency Department. See MAR. Historians other than the Patient: . Counseling: I had a detailed discussion with the patient and/or guardian regarding: the historical points, exam findings, and any diagnostic results supporting the discharge/admit diagnosis, radiology results, the need for outpatient follow up, to return to the emergency department if symptoms worsen or persist or if there are any questions or concerns that arise at home. 11/01 18:12 Order name: Elbow Left 3 View XRAY; Complete Time: 19:15 [facility] 11/01 18:12 Order name: Forearm Left XRAY; Complete Time: 19:15 [facility] 11/01 18:12 Order name: Wrist Left (3 View) XRAY; Complete Time: 19:05 [facility] 11/01 19:25 Order name: Sugar Tong Forearm Splint; Complete Time: 20:23 [facility] 11/01 19:25 Order name: Sling; Complete Time: 20:23 [facility] Administered Medications: 20:36 CANCELLED (Duplicate Order): HYDROmorphone IM 1 mg IM once [facility] 20:37 Drug: HYDROcodone-acetaminophen PO 5 mg-325 mg 2 tabs Route: PO; Disposition Summary: 11/01/22 20:24 Discharge Ordered Location: Home [facility] Condition: Stable [facility] Diagnosis - Distal radial fracture jmm - Distal ulna fracture [facility] Followup: [facility] - With: Private Physician - When: 2 - 3 days - Reason: Recheck today's complaints, Continuance of care, Re-evaluation by your physician Discharge Instructions: - Discharge Summary Sheet jmm - Radial Fracture ashley Forms: - Medication Reconciliation Form ashley - Thank You Letter ashley - Antibiotic Education ashley - Prescription Opioid Use ashley Prescriptions: - Ultracet 37.5-325 mg Oral Tablet - take 1 tablet by ORAL route every 6 hours Can take 1 - 2 tablets every 6 hours; barim 30 tablet; Refills: 0, Product Selection Permitted Signatures: Dispatcher [employer] Sivan Story RN RN Tito Pulliam PA PA jmm Lewis, Lynsay, RN RN ll1 Corrections: (The following items were deleted from the chart) 17:39 17:37 PMHx: Diabetes mellitus; ll1 ll1 20:36 20:34 HYDROmorphone IM 1 mg IM once ordered. ashley ramirez
--- NOTE | 2022-11-01 20:25 | ER ---
Nurse's Notes [facility] Name: Suki Sidhu Age: 61 yrs Sex: Female : 1960 Arrival Date: 11/01/2022 Time: 17:17 Bed 10 Private MD: Diagnosis: Distal radial fracture;Distal ulna fracture Presentation: 11/01 17:36 Chief complaint: Patient states: LUE pain from slip/fall at [employer] 1 hour [employer]. Fell ll1 onto L knee. No LOC, no blood thinners. Coronavirus screen: Client denies travel out of the [place] in the last 14 days. At this time, the client does not indicate any symptoms associated with coronavirus-19. Ebola Screen: Patient denies travel to an Ebola-affected area in the 21 days before illness onset. Initial Sepsis Screen: Does the patient meet any 2 criteria? No. Patient's initial sepsis screen is negative. Does the patient have a suspected source of infection? No. Patient's initial sepsis screen is negative. Risk Assessment: Do you want to hurt yourself or someone else? Patient reports no desire to harm self or others. Onset of symptoms was November 01, 2022. 17:36 Method Of Arrival: EMS ll1 17:36 Acuity: ROXY 4 ll1 17:39 Chief complaint: EMS states: 20 R AC. Toradol 30 MG IV and Zofran 4 MG IV given in ll1 route. Triage Assessment: 17:38 General: Appears uncomfortable, Behavior is calm, cooperative, appropriate for age. ll1 Pain: Complains of pain in left arm Quality of pain is described as aching. Derm: Reports pain. Musculoskeletal: Circulation, motion, and sensation intact. Capillary refill < 3 seconds, Reports pain in left arm. Historical: - Allergies: 17:37 No Known Allergies; ll1 - PMHx: 17:37 Hypertensive disorder; insulin resistant; ll1 - PSHx: 17:37 breast CA SX; thermal ablation; section; ll1 - Immunization history:: Client reports receiving the 2nd dose of the Covid vaccine. - Social history:: Smoking status: Patient denies any tobacco usage or history of. Vital Signs: 17:36 BP 131 / 104; Pulse 78; Resp 16; Temp 99; Pulse Ox 100% ; Weight 63.5 kg; Height 5 ft. ll1 0 in. ; Pain 8/10; 17:36 Body Mass Index 27.34 (63.50 kg, 152.4 cm) ll1 17:36 Pain Scale: Adult ll1 ED Course: 17:23 Patient arrived in ED. mr 17:28 Tito Pulliam PA is PHCP. [facility] 17:28 Nghia Tucker MD is Attending Physician. [facility] 17:37 Triage completed. ll1 17:39 Arm band placed on. ll1 18:59 Elbow Left 3 View XRAY In Process Unspecified. EDMS 18:59 Forearm Left XRAY In Process Unspecified. EDMS 18:59 Wrist Left (3 View) XRAY In Process Unspecified. EDMS 20:21 Orthoglass splint: Sugar tong splint applied on left arm. Sling applied to left arm. oe Administered Medications: 20:36 CANCELLED (Duplicate Order): HYDROmorphone IM 1 mg IM once [facility] 20:37 Drug: HYDROcodone-acetaminophen PO 5 mg-325 mg 2 tabs Route: PO; Outcome: 20:24 Discharge ordered by . [facility] 20:43 Patient left the ED. Signatures: Dispatcher [employer] EDSivan Prado RN RN Tito Pulliam PA PA nena SanchezaDayna mr Kirby, Hilda Chan, RN RN ll1 Corrections: (The following items were deleted from the chart) 17:39 17:37 PMHx: Diabetes mellitus; ll1 ll1 18:39 17:36 BP 131 / 04; Pulse 78bpm; Resp 16bpm; Pulse Ox 100%; Temp 99F; 63.5 kg; Height 5 ll1 ft. 0 in.; BMI: 27.3; Pain 8/10, Adult; ll1
[2022-11-01] MEDS ORDERED: HYDROCODONE/APAP 5/325 MG TAB ONE (20:46)
[2022-11-01 21:40] VITALS: BP 131/104; TEMP 99; O2SAT 100
== END 2022-11-01 20:43 | disposition home or self-care (01) ==
LOC: ER 17:17
PROC: 2W3DX1Z Immobilization of Left Lower Arm using Splint (ICD-10-PCS; principal; 2022-11-01)
DX: S52.502A Unspecified fracture of the lower end of left radius, initial encounter for closed fracture (principal); S52.602A Unspecified fracture of lower end of left ulna, initial encounter for closed fracture; I10 Essential (primary) hypertension
CPT/HCPCS: 99284